=== PATIENT | male | born 1940 | race Caucasian/White ===

== ENCOUNTER 2019-04-27 22:29 | Inpatient (IN) ==
[2019-04-27] MEDS ORDERED: ROCEPHIN 1 GM in NS 50 ML IV ONE (22:32)
[2019-04-27] MEDS ORDERED: TYLENOL PO ONE (22:32)
[2019-04-27] MEDS ORDERED: MOTRIN PO ONE (22:32)
--- NOTE | 2019-04-27 22:56 | PROVIDER DOCUMENTATION ---
This chart was entered by Al Kitchen Scribe, acting as scribe for Jaya Ferrell MD. HPI-General Adult - General Chief Complaint: Flu Symptoms Stated Complaint: fever,congestion Time Seen by Provider: 04/27/19 22:32 Source: patient, family, EMS Allergies/Adverse Reactions: Patient Allergies Allergy/AdvReac Type Severity Reaction Status Date / Time morphine Allergy Unknown Verified 04/27/19 22:31 Home Medications: Home Medication List Medication Instructions Recorded Confirmed Last Taken Type Acetaminophen with Codeine 2 ea PO TID 04/28/19 04/28/19 Unknown History [Tylenol with Codeine #3] Aspirin [Ecotrin] 81 mg PO QHS 04/28/19 04/28/19 Unknown History Atorvastatin Calcium [Lipitor] 80 mg PO QHS 04/28/19 04/28/19 Unknown History Carbidopa/Levodopa [Carbidopa-Levo 1 ea PO QHS PRN 04/28/19 04/28/19 Unknown History 25-100 mg Odt] Carbidopa/Levodopa [Carbidopa-Levo 2 ea PO DAILY@1400 04/28/19 04/28/19 Unknown History 25-100 mg Odt] Carbidopa/Levodopa 1 ea PO DAILY 04/28/19 04/28/19 04/27/19 History [Carbidopa-Levodopa 25-100 Tab] Cholecalciferol (Vit D3) [Vitamin 1,000 unit PO DAILY 04/28/19 04/28/19 Unknown History D3] Cilostazol 100 mg PO BID 04/28/19 04/28/19 Unknown History Furosemide 80 mg PO BID 04/28/19 04/28/19 Unknown History Gabapentin [Neurontin] 2 cap PO TID 04/28/19 04/28/19 04/27/19 History Hydroxychloroquine [Plaquenil] 200 mg PO DAILY 04/28/19 04/28/19 Unknown History Insulin Aspart [Novolog Flexpen] 10 - 12 unit SQ AC 04/28/19 04/28/19 Unknown History Insulin Glargine [Basaglar] 20 unit SUBQ QHS 04/28/19 04/28/19 Unknown History Isosorbide Mononitrate [Isosorbide 1.5 tab PO DAILY 04/28/19 04/28/19 Unknown History Mononitrate ER] Losartan [Cozaar] 25 mg PO BID 04/28/19 04/28/19 Unknown History Metformin [Glucophage] 500 mg PO DAILY 04/28/19 04/28/19 Unknown History Metoprolol [Lopressor] 150 mg PO BID 04/28/19 04/28/19 Unknown History Warfarin [Coumadin] 7.5 mg PO QHS 04/28/19 04/28/19 Unknown History - History of Present Illness -Gen Adult Nature of Presenting Problems: 78 yom [facility] w/ c/o High fever, productive cough, body aches. pt states onset for 2 days but fever today stated by . EMS reports pt stating " hasn't felt good for 2 days, "just feeling off but answers all questions , pt is traveling from [place] to [facility]." states pt has flu shot this year. states pt has felt hot to touch "feels like had fever of least 102 but not measured." Location of Pain/Injury: reports: generalized (body aches) Pain Radiation: reports: no radiation Quality of Pain: reports: aching Severity: reports: mild Onset/Duration: reports: 2 days ago Timing: reports: still present Context/Activities at Onset: reports: none Modifying Factors: improves with: nothing Associated Symptoms: reports: cough (productive cough , green thick mucus), fever/chills (100.3), muscle aches, weakness. denies: back/neck pain, chest pain, constipation, diarrhea, nausea, vomiting Similar Symptoms Previously?: No Recently seen or treated by another doctor?: No Review of Systems - Adult - REVIEW OF SYSTEMS - ADULT Constitutional: reports: see HPI, chills, fever. denies: fatique, night sweats Eyes: reports: no symptoms reported Ears, Nose, Mouth & Throat: reports: no symptoms reported Cardiovascular: reports: no symptoms reported Respiratory: reports: see HPI, cough. denies: wheezing Gastrointestinal: denies: abdominal pain, constipation, diarrhea, nausea, vomiting Genitourinary: reports: see HPI, dysuria, frequency. denies: discharge, urinary retention Musculoskeletal: reports: see HPI, muscle aches. denies: back pain, neck pain Integumentary: reports: no symptoms reported Neurological: reports: no symptoms reported Psychiatric: reports: no symptoms reported Endocrine: reports: no symptoms reported Hematologic/Lymphatic: reports: no symptoms reported Allergic/Immunologic: reports: no symptoms reported All Other Systems: Reviewed and Negative Past History - Adult - PAST MEDICAL HISTORY-ADULT Review of Records: reports: Old Records Reviewed, Nursing Assessment Review, Medications Reviewed, Social history reviewed & non-contributory. Major Childhood Illnesses: reports: denies history Cardiovascular: reports: CHF, HTN, hyperlipidemia, other (AFlutter) Respiratory: reports: denies history Gastrointestinal: reports: denies history Obstetrical/Gynecological: reports: denies history Genitourinary: reports: denies history Musculoskeletal: reports: denies history Neurological: reports: Parkinson's Psychiatric: reports: denies history Endocrine/Immune: reports: Diabetes Diabetes Type: Type 2 Other Conditions: reports: denies history - PRIOR SURGERIES/PROCEDURES Surgical/Procedure History: reports: CABG, cholecystectomy, cardiac stent (3), other (bypass/ AAA) - IMMUNIZATION STATUS Childhood Immunizations: See Nurse Assessment Flu Vaccine: See Nurse Assessment - FAMILY HISTORY Family History: reviewed, not pertinent - SOCIAL HISTORY Smoking: denies Substance Use: alcohol Alcohol Use Frequency: occasionally Physical Exam-General - PHYSICAL EXAM-ADULT Initial Vital Signs Reviewed: Yes - CONSTITUTIONAL General Appearance: appears well, alert, mild distress - RESPIRATORY Respiratory: chest non-tender, normal breath sounds, rhonchi (bilateral) - CARDIOVASCULAR Cardiovascular: regular rate, rhythm, tachycardia (122) - GASTROINTESTINAL (ABDOMEN) Abdominal Exam: normal bowel sounds, non tender, soft, hernia (umbilical hernia) - GENITOURINARY Male Genitalia: deferred Rectal Exam: deferred Hemoccult Exam: deferred - MUSCULOSKELETAL Back Exam: normal inspection Extremity: normal range of motion, non-tender, normal gait, normal inspection - SKIN Integumentary: other (on exam pt is very hot to touch) - NEUROLOGIC Neurologic: grossly normal, no motor/sensory deficits - PSYCHIATRIC Psych/Mental Status: normal mood/affect, normal thought content, normal thought process, oriented x 3 Progress - PLAN OF CARE/RESULTS Progress/Plan/Lab Results: Vital Signs - 8 hr 04/27/19 22:28 Temperature 100.3 F H Pulse Rate 122 H Respiratory Rate 27 H Blood Pressure 151/84 O2 Sat by Pulse Oximetry 93 L Result Diagrams: 04/27/19 22:50 04/27/19 22:50 - EKG 1 Time of EKG reading by physician:: 00:25 EKG Read and Signed by:: Jaya Ferrell EKG Interpretation (*Must complete 3 of following elements*): Abnormal Rate: 105 Rhythm: sinus tachycardia w/ 1st degree AV block [place]: left (LT axis deviation) QRS: normal ID Interval: normal ST Wave: normal Comments: Possible LT atrial enlargement/Nonspecific T wave abnormailty - XRAY 1 XRAY Study: Chest XRAY Interpretation: LLL infiltrate, increased vascular markings - CONSULTS/PCP/HOSPITALIST Notification #1 *Consult/PCP/Hospitalist*: Dr. Wei, hospitalist Time Discussed: 23:50 Consult Disposition: Admit Departure - Departure Date of Disposition Decision: 04/28/19 Time of Disposition Decision: 08:31 DIAGNOSIS: Pneumonia Qualifiers: Pneumonia type: due to unspecified organism Laterality: left Lung location: lower lobe of lung Qualified Code(s): J18.1 - Lobar pneumonia, unspecified organism CHF (congestive heart failure) Qualifiers: Heart failure type: unspecified Heart failure chronicity: acute Qualified Code(s): I50.9 - Heart failure, unspecified CAD (coronary artery disease) Qualifiers: Coronary Disease-Associated Artery/Lesion type: unspecified vessel or lesion type [place] vs. transplanted heart: [place] heart Associated angina: without angina Qualified Code(s): I25.10 - Atherosclerotic heart disease of [place] coronary artery without angina pectoris Disposition: ADMITTED INPATIENT 09 Certified Medical Emergency: Emergent Condition: Stable - Critical Care Note This patient required my direct & personal management of CC.: No Attestation - Physician/ RUBÉN Attestation Patient care was provided by Advanced Practice Provider:: No The physician spent face to face time with patient:: Yes Advanced Practice Provider documentation review:: Supervising physician onsite and consulted in the evaluation and care of this patient. The physician did have a face to face encounter with the patient. This chart was documented by the indicated scribe, (Al Kitchen, Mauri) a nd accurately reflects the services I performed and decisions made by me, Jaya Ferrell MD, as attested by the provider's signature.
[2019-04-27] MEDS ORDERED: NS 50 ML ONE (23:01)
[2019-04-27] MEDS ORDERED: ZITHROMAX 500 MG/NS 500 MG/250 ML IVPB IV ONE (23:18)
[2019-04-27 23:26] LABS: BASO# 0.02 X1000 (0.0-0.2); BASO% 0.2 % (0.0-0.8); EOS# 0.09 X1000 (0.0-0.7); HEMATOCRIT 37.7 % (42.0-52.0); HEMOGLOBIN 11.9 g/dL (14.0-18.0); IMM GRAN# 0.02 X1000 (0.0-0.04); IMM GRAN% 0.2 % (0.0-0.5); LYMPH% 10.8 % (20.5-51.1); MCHC 31.6 g/dL (33-37); MCV 85.7 FL (81-99); MONO# 1.25 X1000 (0.11-0.59); MONO% 13.5 % (1.7-9.3); MPV 10.3 FL (7.4-10.4); NEUT# 6.89 X1000 (1.4-6.5); NEUT% 74.3 % (42.2-75.2); PLT 190 X1000 (130-400); RDW 16.9 % (11.5-14.5); WBC 9.27 X1000 (4.8-10.8)
[2019-04-27 23:35] LABS: INR 2.13; PROTIME 25.1 Seconds (11.0-16.0)
[2019-04-27 23:36] LABS: PTT 48.9 Seconds (22.3-41.8)
[2019-04-27] MEDS ORDERED: LASIX IV ONE (23:54)
[2019-04-28] LABS: ALBUMIN 4.5 g/dL (3.5-5.0); CALCIUM 9.4 mg/dL (8.8-10.2); CREATININE 1.3 mg/dL (0.7-1.2); TOTAL BILIRUBIN 0.4 mg/dL (0.20-1.00); TOTAL PROTEIN 7.4 g/dL (6.3-8.3)
[2019-04-28 00:02] LABS: POTASSIUM 4.2 mmol/L (3.5-5.1)
[2019-04-28 00:38] LABS: INFLUENZA A NEGATIVE (NEGATIVE); INFLUENZA B NEGATIVE (NEGATIVE)
[2019-04-28] MEDS ORDERED: TYLENOL PO PRN (00:43)
--- NOTE | 2019-04-28 01:46 | EKG Report ---
Test Performed on : 04/28/2019 00:25:22 AM Test Reason : pain Blood Pressure : / mmHG Vent. Rate : 105 BPM Atrial Rate : 105 BPM P-R Int : 218 ms QRS Dur : 100 ms QT Int : 344 ms P-R-T Axes : 033 -41 084 degrees QTc Int : 454 ms Sinus tachycardia. with 1st degree AV block. Possible Left atrial enlargement Left axis deviation Nonspecific T wave abnormality Abnormal ECG No previous ECGs available Confirmed by Lenny Loco MD ([id number]), editor & co founder Mady Nino ([id number]) on 06/03/2019 12:38:05 PM
[2019-04-28 02:07] LABS: URINE SOURCE CATH
[2019-04-28 02:11] LABS: BILIRUBIN URINE NEGATIVE (NEGATIVE); BLOOD URINE NEGATIVE (NEGATIVE); COLOR YELLOW; GLUCOSE URINE NEGATIVE (NEGATIVE); KETONE URINE NEGATIVE (NEGATIVE); LEUKOCYTES URINE NEGATIVE (NEGATIVE); NITRITE URINE NEGATIVE (NEGATIVE); PROTEIN URINE NEGATIVE (NEGATIVE); SP GRAVITY URINE 1.011; TURBIDITY URINE CLEAR (CLEAR); UROBILINOGEN URINE NORMAL (NORMAL)
[2019-04-28 02:12] LABS: UR EPITHELIAL CELLS <10 /HPF (<10); URINE BACTERIA NEGATIVE /HPF; URINE RBC <10 /HPF (<10); URINE WBC <10 /HPF (<10)
[2019-04-28] MEDS ORDERED: NS 1,000 ML IV ONE (02:49)
--- NOTE | 2019-04-28 08:11 | Diag Imaging Result Doc PS360 ---
CHEST-PORTABLE - 04/27/2019 INDICATION: productive cough,fever COMPARISON: None FINDINGS: There is significant infiltrate in the left lung base. There are median sternotomy wires. Heart size is top normal. No pneumothorax or large pleural effusion. IMPRESSION: Left basilar infiltrate/pneumonia. Electronically signed by Law Driver 04/28/2019 8:09 AM
[2019-04-28] MEDS: DUONEB (A & A) INH PRN ×4 (11:27→23:25)
[2019-04-28] MEDS ORDERED: DUONEB (A & A) INH SCH (11:30)
[2019-04-28] MEDS ORDERED: NEURONTIN PO SCH (13:00)
[2019-04-28] MEDS: MUCINEX PO SCH ×2 (13:01→20:38)
[2019-04-28] MEDS: NEURONTIN PO SCH ×2 (13:01→20:37)
[2019-04-28] MEDS: LASIX PO SCH ×2 (13:01→20:38)
[2019-04-28] MEDS: HUMALOG (PARKWAY) SUBQ SCH ×3 (13:02→20:38)
--- NOTE | 2019-04-28 13:06 | HISTORY AND PHYSICAL ---
ADDENDUM: Patient was seen and examined by myself. Full note dictated and discussed with nurse practitioner. The patient presented to the hospital with 1 day of fever, chills, increased work of breathing, and generalized weakness. He has a known history of Parkinson's disease. He was traveling with his , south to [place], when his symptoms became too severe and they stopped at our hospital. Currently, he is awake and alert. He is in mild distress. He is definitely coughing and short of breath. We are going to place him on antibiotics and breathing treatments. Check a sputum culture and we will follow. cc: Maged Wei MD
[2019-04-28] MEDS ORDERED: SINEMET CR 25/100 PO SCH (13:15)
[2019-04-28] MEDS ORDERED: SINEMET 25/100 PO PRN (13:26)
--- NOTE | 2019-04-28 13:41 | HISTORY AND PHYSICAL ---
PRIMARY CARE PROVIDER: [facility] [place] [facility] CHIEF COMPLAINT: Fever, cough. HISTORY OF PRESENT ILLNESS: Mr. Patel is a 78-year-old, male who carries a past medical history of CHF, hypertension, hyperlipidemia, atrial flutter, coronary artery disease, diabetes mellitus, and Parkinson's, who reports that him and his were on their way from [place] to [place] in [place]. He reported they stopped for lunch. He felt like he was getting a sore throat. 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 He felt like his Parkinson's symptoms were worsening. He reports that they are normally very well controlled. He then started feeling hot and feverish with a productive cough and body aches. They got a hotel for the night. However, he progressively kept getting worse. EMS was called. On workup in the ED, he was found to have a left lower lobe pneumonia. He was febrile, tachycardic, and tachypneic. He was initiated on supplemental O2, bronchodilators, IV antibiotics, and given a dose of IV Lasix as well, and Tylenol and acetaminophen to bring down his fever. He is currently afebrile. He does not have a white count. Plasma lactates have been negative. He was flu negative. We will continue with current antibiotic regimen, aggressive pulmonary toilet, and supplemental O2. PAST MEDICAL HISTORY: Per HPI. PAST SURGICAL HISTORY: CABG, cholecystectomy, cardiac stents x3, AAA repair. FAMILY HISTORY: Reviewed and noncontributory. SOCIAL HISTORY: He is . They are from [place]. is at bedside. No tobacco use. Does have an occasional glass of wine. They were traveling to [place] to spend 3 months for the winter. ALLERGIES: Morphine causes hives. HOME MEDICATIONS: 1. Coumadin 7.5 mg p.o. at bedtime. 2. Aspirin 81 mg p.o. at bedtime. 3. Lipitor 80 mg p.o. at bedtime. 4. Neurontin 800 mg p.o. q.4 hours. 5. Lodosyn 100 mg p.o. daily. 6. Cilostazol 100 mg p.o. b.i.d. 7. Cozaar 25 mg p.o. b.i.d. 8. Lasix 80 mg p.o. b.i.d. 9. Metformin 500 mg p.o. daily. 10. Isosorbide mononitrate 60 mg tablet, 1-1/2 tablets p.o. daily. 11. Lopressor 150 mg p.o. b.i.d. 12. Plaquenil 200 mg p.o. daily. 13. Tylenol #3 two each p.o. t.i.d. 14. Vitamin D3 with 1000 units p.o. daily. REVIEW OF SYSTEMS: A 12-point review of systems completely negative except for those mentioned in the HPI. No cardiac type chest pain. No palpitations. No nausea, vomiting, diarrhea. No dysuria. PHYSICAL EXAMINATION: VITAL SIGNS: Temperature is 97.7 degrees, heart rate 100, respirations 20, blood pressure 136/86, O2 is 99% on 2 L nasal cannula. GENERAL: Mr. Patel is a pleasant, 78-year-old, male who is sitting up in the bed and in no acute distress. HEENT: Atraumatic, normocephalic. PERRL. Neck is supple. Trachea midline. Mucous membranes are dry. CARDIOVASCULAR: S1, S2 appreciated. No murmurs, gallops, or rubs noted. No lower extremity edema. No JVD appreciated. PULMONARY: Scattered rhonchi throughout all lung [place]. ABDOMEN: Soft, nontender, nondistended. Positive bowel sounds in 4 quadrants. Palpable umbilical hernia. SKIN: Was warm, dry, and intact. His face was red. NEUROLOGIC: No focal deficits noted. DIAGNOSTIC DATA: Chest x-ray, left basilar infiltrate, pneumonia. EKG, sinus tachycardia with a first-degree AV block, at 105 beats per minute. LABORATORY DATA: White count 9, hemoglobin and hematocrit 11 and 37, platelet count is 190,000. Sodium 140, potassium 4.2, BUN 49, creatinine 1.3, blood glucose is 227. Troponin was 0.027. ProBNP was 3868. Three sets of plasma lactates have been negative. Urinalysis is negative. Flu A and B negative. ASSESSMENT AND PLAN: 1. Left lower lobe pneumonia. We will continue with intravenous antibiotics. Recheck a chest x- ray in the morning. Aggressive pulmonary toilet, bronchodilators. Currently pending blood cultures and sputum cultures. 2. Known congestive heart failure. Patient does have an elevated proBNP. However, he does not appear to be in a congestive heart failure exacerbation. He was given intravenous Lasix in the emergency room. We will continue his home oral Lasix. He was also given fluid boluses in the emergency department as well as one bag of normal saline at a set rate. We will continue to monitor his fluid status, strict intakes and outputs, daily weights. 3. Coronary artery disease history, status post coronary artery bypass graft and stents, as well as abdominal aortic aneurysm repair. No cardiac type chest pain. We will continue his home medications. 4. Known atrial flutter. We will continue his home metoprolol and Coumadin. Daily PT and INRs. 5. Acute kidney injury on probable chronic kidney disease. 6. Hypertension. Continue home medications. 7. Hyperlipidemia. Continue Lipitor. 8. Parkinson's disease. Continue home medications. 9. Diabetes mellitus type 2. We will continue home medications. Place him on sliding scale with pattern blood sugars. 10. Hypoxemia 11. Further recommendation to follow physician evaluation, laboratory and diagnostic data. Dictated by TIESHA Call for Maged Wei MD cc: Maged Wei MD [facility]
[2019-04-28] MEDS: SINEMET 25/100 PO SCH (13:56)
[2019-04-28] MEDS: TYLENOL WITH CODEINE #3 PO SCH ×2 (13:56→20:36)
[2019-04-28] MEDS: LIPITOR PO SCH (20:37)
[2019-04-28] MEDS: ASPIRIN EC PO SCH (20:37)
[2019-04-28] MEDS: PLETAL PO SCH (20:37)
[2019-04-28] MEDS: COZAAR PO SCH (20:37)
[2019-04-28] MEDS: LANTUS INSULIN SUBQ SCH (20:37)
[2019-04-28] MEDS: COUMADIN PO SCH (20:37)
[2019-04-28] MEDS: LOPRESSOR PO SCH (20:38)
[2019-04-28] MEDS: ROCEPHIN 1 GM in NS 50 ML IV SCH (20:59)
[2019-04-28] MEDS ORDERED: ZITHROMAX 500 MG/NS 500 MG/250 ML IVPB IV SCH (23:00)
[2019-04-29 05:40] LABS: BASO# 0.02 X1000 (0.0-0.2); BASO% 0.3 % (0.0-0.8); EOS# 0.19 X1000 (0.0-0.7); EOS% 2.5 % (0.0-10.0); HEMATOCRIT 40.2 % (42.0-52.0); HEMOGLOBIN 12.1 g/dL (14.0-18.0); IMM GRAN# 0.01 X1000 (0.0-0.04); IMM GRAN% 0.1 % (0.0-0.5); LYMPH# 0.99 X1000 (1.2-3.4); LYMPH% 12.8 % (20.5-51.1); MCH 26.4 PG (27-31); MCHC 30.1 g/dL (33-37); MCV 87.6 FL (81-99); MONO# 1.18 X1000 (0.11-0.59); MONO% 15.2 % (1.7-9.3); NEUT# 5.36 X1000 (1.4-6.5); NEUT% 69.1 % (42.2-75.2); PLT 170 X1000 (130-400); RBC 4.59 XMIL (4.7-6.1); RDW 17.1 % (11.5-14.5); WBC 7.75 X1000 (4.8-10.8)
[2019-04-29 06:08] LABS: INR 1.56; PROTIME 19.6 Seconds (11.0-16.0)
[2019-04-29 06:23] LABS: AGAP 12; BUN 42 mg/dL (8-22); CALCIUM 9.6 mg/dL (8.8-10.2); CHLORIDE 100 mmol/L (98-107); COSMO 297; ESTIMATED GFR > 60; GLUCOSE 156 mg/dL (70-104); POTASSIUM 4.2 mmol/L (3.5-5.1); SODIUM 142 mmol/L (136-145); TCO2 30 mmol/L (25-35)
[2019-04-29] MEDS: HUMALOG (PARKWAY) SUBQ SCH ×4 (06:32→21:13)
--- NOTE | 2019-04-29 07:38 | ECHO REPORT ---
ORDER DATE: 04/28/2019 INTERPRETING PHYSICIAN: Dr. Fung REQUESTING PHYSICIAN: CLINICAL INDICATIONS: This is a 78-year-old male with CHF, diabetes, bypass. M-MODE MEASUREMENTS: Right ventricle: cm. Left ventricle end diastole: 4.9 cm. Left ventricle end systole: 4.0 cm. Posterior wall: 1.4 cm. Interventricular septum: 1.4 cm. Left atrium: 4.8 cm. Aortic root: 3.6 cm. SUMMARY OF 2-DIMENSIONAL IMAGIN. The left ventricular chamber appears to be mildly enlarged. The left ventricular systolic function is mildly impaired. Global ejection fraction appears to be in the neighborhood of 50%. 2. There is no definite wall motion abnormality noted. 3. The left atrium is significantly enlarged. The volume is about 48 mL per m sq of body surface area. 4. Aortic valve shows calcification with mild degree of stenosis. Maximum gradient is estimated at 25 mmHg, mean gradient is 14 mmHg. Valve area is about 1.8 cm sq. 5. The mitral annulus showed mild calcification. Color flow mapping of mitral valve indicates mild degree of regurgitation. 6. The pulse wave Doppler of mitral inflow shows reversal of the E and the A ratio. The ratio is 0.85. 7. Tissue Doppler of septal and lateral mitral annulus averages 6 cm. 8. Pulmonary venous flow appears to be normal. 9. Diastolic function is probably normal. 10.Tricuspid valve shows a mild degree of regurgitation. 11.Pulmonary pressure is estimated at 51 to 56 mmHg. 12.Pulmonic valve is unremarkable. 13.There is no pericardial effusion, mass or thrombus. 14.Right-sided chambers showed moderately enlarged right ventricle. Clinical correlation is recommended. cc: Hiro Fung MD
[2019-04-29] MEDS: DUONEB (A & A) INH PRN ×5 (07:43→22:34)
--- NOTE | 2019-04-29 08:21 | Diag Imaging Result Doc PS360 ---
EXAM: CHEST-PORTABLE HISTORY: Pneumonia TECHNIQUE: Single view of the chest was performed portably. COMPARISON: 04/27/2019 FINDINGS: There is cardiomegaly with median sternotomy wires noted. There is pulmonary vascular congestion particularly in the right lung. Suboptimal visualization of the left base due to portable technique but no definitive change in left basilar infiltrate. IMPRESSION: No definite change left basilar infiltrate. Cardiomegaly. Vascular congestion right lung. Electronically signed by Deya Alamo 04/29/2019 8:19 AM
[2019-04-29] MEDS: TYLENOL WITH CODEINE #3 PO SCH ×3 (08:36→20:10)
[2019-04-29] MEDS: MUCINEX PO SCH ×2 (08:36→20:10)
[2019-04-29] MEDS: NEURONTIN PO SCH ×3 (08:36→20:09)
[2019-04-29] MEDS: LOPRESSOR PO SCH (08:38)
[2019-04-29] MEDS: LASIX PO SCH (08:38)
[2019-04-29] MEDS: SINEMET 25/100 PO SCH ×2 (08:38→14:47)
[2019-04-29] MEDS: VITAMIN D PO SCH (08:38)
[2019-04-29] MEDS: ZITHROMAX PO SCH (08:38)
[2019-04-29] MEDS: IMDUR PO SCH (08:39)
[2019-04-29] MEDS: COZAAR PO SCH (08:39)
[2019-04-29] MEDS: PLETAL PO SCH ×2 (08:39→20:09)
[2019-04-29] MEDS: GLUCOPHAGE PO SCH (08:39)
[2019-04-29] MEDS: PLAQUENIL PO SCH (08:40)
[2019-04-29] MEDS ORDERED: LASIX PO SCH (09:00)
[2019-04-29] MEDS ORDERED: LODOSYN PO SCH (09:00)
[2019-04-29] MEDS ORDERED: CHLORASEPTIC SORE THROAT LOZENGE MT PRN (11:25)
[2019-04-29] MEDS ORDERED: LASIX IV ONE (12:56)
[2019-04-29] MEDS: NS 1,000 ML IV SCH (17:51)
[2019-04-29] MEDS: LIPITOR PO SCH (20:09)
[2019-04-29] MEDS: ASPIRIN EC PO SCH (20:09)
[2019-04-29] MEDS: COUMADIN PO SCH (20:09)
[2019-04-29] MEDS: ROCEPHIN 1 GM in NS 50 ML IV SCH (21:13)
[2019-04-29] MEDS: LANTUS INSULIN SUBQ SCH (21:13)
--- NOTE | 2019-04-29 21:54 | PROGRESS NOTE ---
DATE: 04/29/2019 Patient notes overall he is feeling a lot better less cough, less congestion, denies any fevers or chills. PHYSICAL: Temperature 97.5, pulse 87, respiratory 18, BP 133/68.General: Patient is pleasant, he is in no respiratory distress. HEENT: Normocephalic. Neck: Supple. Cardiovascular: Regular rate no murmurs. Chest: Clear, no crackles, no wheezing. Abdomen: Soft. Extremities: Moves all extremities. ASSESSMENT: 1. Left lower lobe pneumonia . 2. Congestive heart failure. 3. Known coronary artery disease. 4. Atrial flutter. 5. Acute kidney injury likely on chronic. 6. Hypertension. 7. Hyperlipidemia. 8. Parkinson's. PLAN: We are going to continue patient the hospital, change to p.o. azithromycin, continue Rocephin and will follow, if he continues to improve hopefully discharge home in the a.m. cc: Maged Wei MD
[2019-04-30] MEDS: NS 1,000 ML IV SCH (04:37)
[2019-04-30] MEDS: HUMALOG (PARKWAY) SUBQ SCH (06:44)
[2019-04-30 07:02] LABS: INR 1.59; PROTIME 19.9 Seconds (11.0-16.0)
[2019-04-30 07:34] VITALS: BP 150/81
[2019-04-30] MEDS: NEURONTIN PO SCH (08:29)
[2019-04-30] MEDS: VITAMIN D PO SCH (08:29)
[2019-04-30] MEDS: MUCINEX PO SCH (08:29)
[2019-04-30] MEDS: ZITHROMAX PO SCH (08:29)
[2019-04-30] MEDS: GLUCOPHAGE PO SCH (08:29)
[2019-04-30] MEDS: PLETAL PO SCH (08:29)
[2019-04-30] MEDS: SINEMET 25/100 PO SCH ×2 (08:30→08:39)
[2019-04-30] MEDS: IMDUR PO SCH (08:31)
[2019-04-30] MEDS: TYLENOL WITH CODEINE #3 PO SCH (08:31)
[2019-04-30] MEDS: PLAQUENIL PO SCH (08:40)
--- NOTE | 2019-04-30 11:52 | DISCHARGE SUMMARY ---
ADMISSION DATE: 04/28/2019 DISCHARGE DATE: 04/30/2019 PRIMARY CARE PHYSICIAN: [facility] in [place]. ADMISSION DIAGNOSES: 1. Left lower lobe pneumonia. 2. Known congestive heart failure. 3. Coronary artery disease status post coronary artery bypass graft and stents as well as an abdominal aortic aneurysm repair. 4. Known atrial flutter. 5. Acute kidney injury on probable chronic kidney disease. 6. Hypertension. 7. Hyperlipidemia. 8. Parkinson disease. 9. Diabetes type 2. 10. Hypoxemia. DISCHARGE DIAGNOSES: 1. Left lower lobe pneumonia. 2. Congestive heart failure. 3. Known coronary artery disease. 4. Atrial flutter. 5. Acute kidney injury likely on chronic. 6. Hypertension. 7. Hyperlipidemia. 8. Parkinson's. SUMMARY OF FINDINGS: This is a 78-year-old male who presented to the ER after he was on his way traveling from [place] to [facility]. He stopped for lunch and stated that he felt like he was getting a sore throat. 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 He felt like his Parkinson's symptoms were worsened. He felt feverish and hot with a productive cough and body aches. They got a hotel for the night. He progressively kept getting worse, so EMS was called. He was found to have a left lower lobe pneumonia, was febrile, tachycardic and tachypneic, was admitted placed on IV antibiotics, given a dose of IV Lasix, Tylenol and acetaminophen to bring down his fever. His flu was negative. Plasma lactate were negative. His white count was normal. Yesterday, he had some hypotension with his lowest BP of 78/48, was given gentle fluid resuscitation. Today, he is feeling much better. Blood pressure is up to 150/81. His white count has remained normal. He has been afebrile for greater than 24 hours and it is now felt that he can safely be discharged. DISCHARGE MEDICATIONS: Will include Tylenol with Codeine No. 3, two p.o. t.i.d., aspirin 81 mg p.o. at bedtime, Lipitor 80 mg p.o. at bedtime and Zithromax 250 mg p.o. daily #4 with no refills, carbidopa levodopa 25/100, 1 p.o. at bedtime and 2 p.o. daily at 2 p.m., cefdinir 300 mg p.o. b.i.d. #10 with no refills, vitamin D 1000 units p.o. daily, cilostazol 100 mg p.o. b.i.d., Lasix 80 mg p.o. b.i.d., gabapentin 400 mg 2 capsules t.i.d., Plaquenil 200 mg p.o. daily, NovoLog FlexPen 10/12 units subcu before meals, Basaglar 20 units subcutaneous at bedtime, isosorbide 60 mg 1-1/2 tablets p.o. daily, losartan 25 mg p.o. b.i.d., metformin 500 mg p.o. daily, metoprolol 150 mg p.o. b.i.d., and warfarin 7.5 mg p.o. at bedtime. FOLLOWUP: He will follow up with his primary care physician and will return to an ER as needed once he returns home. TIME SPENT AT DISCHARGE: This was a 35-minute discharge. Dictated by TIESHA Sanchez for Maged Wei MD cc: TIESHA Sanchez MD
--- NOTE | 2019-04-30 17:26 | DISCHARGE SUMMARY ---
ADMISSION DATE: 04/28/2019 DISCHARGE DATE: 04/30/2019 ADDENDUM: The patient seen and examined by myself. Full note dictated and discussed with nurse practitioner. The patient presented to the hospital with pneumonia. He was treated with antibiotics and oxygen. Thankfully, he had a relatively uneventful hospital course. He did have one episode where his blood pressures dropped into the upper 80s and low 90s, but his notes that this has happened previously secondary to his Parkinson's. He was given IV fluids. Symptoms resolved. On discharge blood pressures were 130s to 150s. The patient will be discharged home. He will continue antibiotics and restart his blood pressure medications and continue to check his blood pressure on a regular basis. cc: Maged Wei MD
== END 2019-04-30 10:10 | disposition home or self-care (01) ==
LOC: P.ED 22:29 → P.MEDSURG 04-28 08:15
PROVIDERS: ATTEND Family Medicine